=== PATIENT | female | born 1990 | race Caucasian/White ===

== ENCOUNTER 2017-08-30 16:34 | Inpatient (IN) | payer MEDICAID ==
[~2017-08-30] VITALS: Ht 172.7 cm; Wt 78.5 kg
[~2017-08-30 16:34] MED LIST: CYCL10TA14 PO; QUET100T44 PO; QUET25TA46 PO
[2017-08-30 16:41] VITALS: BP 138/86
[2017-08-30] MEDS ORDERED: diphenhydrAMINE 50 MG/ML VIAL IM ONE (17:05)
[2017-08-30] MEDS ORDERED: LORazepam 2 MG/ML VIAL IM ONE (17:05)
[2017-08-30] MEDS ORDERED: HALOPERIDOL IM 5 MG/ML VIAL IM ONE (17:05)
[2017-08-30 19:19] LABS: BASOPHILS # (AUTO) 0.2 K/uL (0.00-0.22); EOSINOPHILS # (AUTO) 0.1 K/uL (0-0.4); HEMATOCRIT 40.3 % (36-48); HEMOGLOBIN 13.6 g/dL (12.0-16.0); LYMPHOCYTES # (AUTO) 1.5 K/uL (2.5-16.5); MEAN CORPUSCULAR HEMOGLOBIN 30 pg (27-31); MEAN CORPUSCULAR HGB CONC 34 g/dL (33-37); MEAN CORPUSCULAR VOLUME 90 fL (80-94); MONOCYTES # (AUTO) 0.4 K/uL (0.8-1.0); NEUTROPHILS # (AUTO) 4.5 K/uL (1.8-7.7); PLATELET COUNT (AUTO) 336 K/uL (140-450); RED BLOOD CELL COUNT(AUTO) 4.49 MIL/uL (4.20-5.40); RED CELL DISTRIBUTION WIDTH 12.5 % (11.6-13.7); WHITE BLOOD COUNT (AUTO) 6.7 K/uL (4.8-10.8)
[2017-08-30] MEDS ORDERED: NACL 0.9% 2,000 ML IV ONE (19:30)
[2017-08-30 19:33] LABS: ANION GAP 9.3 (8-16); CARBON DIOXIDE 30.7 mmol/L (21-32); CHLORIDE 104 mmol/L (98-107); CREATININE 0.7 mg/dL (0.6-1.3); GFR ARICAN-AMERICAN 128 mL/min (>90); GLUCOSE 123 mg/dL (74-106); SODIUM SERUM 141 mmol/L (136-145); UREA NITROGEN, BLOOD 11 mg/dL (7-18)
[2017-08-30 19:42] LABS: SALICYLATE < 2.8 mg/dL (2.8-20.0)
[2017-08-30 19:46] LABS: ALBUMIN 3.4 g/dL (3.4-5.0); ASPARTATE AMINOTRANSFERASE 24 U/L (15-37); TOTAL BILIRUBIN 0.4 mg/dL (0.0-1.0)
[2017-08-30 19:47] LABS: ACETAMINOPHEN < 0.5 ug/ml (10-30)
[2017-08-30 20:07] LABS: APPEARANCE,URINE HAZY (CLEAR); BILIRUBIN,URINE 2+ (NEGATIVE); BLOOD, URINE 3+ (NEGATIVE); COLOR,URINE YELLOW (YELLOW); LEUKOCYTE ESTERASE ,URINE NEGATIVE (NEGATIVE); NITRITE, URINE NEGATIVE (NEGATIVE); UGLUCOSE NEGATIVE (NEGATIVE)
[2017-08-30 20:16] LABS: BARBITURATE, URINE NEG. ng/ml (NEG <=200); BENZODIAZEPINE, URINE NEG. ng/mL (NEG <=200); CANNABINOID, URINE NEG. ng/mL (NEG <=50); COCAINE, URINE NEG. ng/mL (NEG <=300); OPIATE, URINE NEG. ng/mL (NEG <=2000); PHENCYCLIDINE SCREEN,URINE NEG. ng/mL (NEG <=25)
[2017-08-30 20:17] LABS: WBC,URINE 0-5 (RARE) /HPF (0-5)
[2017-08-30 20:20] LABS: RBC,URINE 50-80 /HPF (0-5)
[2017-08-30] MEDS ORDERED: KCL 20 MEQ/WATER INJ PREMIX 100 ML IV ONE (20:30)
[2017-08-30] MEDS: NACL 0.9% 1,000 ML IV SCH ×2 (20:33→23:39)
[2017-08-30] MEDS ORDERED: ACETAMINOPHEN 325 MG TAB PO PRN (20:35)
[2017-08-30] MEDS ORDERED: HYDROcodone/APAP 7.5/325 MG 1 TAB PO PRN (20:35)
[2017-08-30] MEDS ORDERED: ONDANSETRON 4 MG/2 ML VIAL IVP PRN (20:35)
[2017-08-30] MEDS: DOCUSATE SODIUM 100 MG GELCAP PO SCH (21:00)
[2017-08-30 21:05] LABS: PROTHROMBIN TIME 10.2 secs (10.8-13.4)
[2017-08-30 21:09] LABS: CHOL/HDL RATIO 2.1 (1-4.5); FREE T4 (FREE THYROXINE) 1.21 ng/dL (0.76-1.46); MAGNESIUM 1.9 mg/dL (1.8-2.4); THYROID STIMULATING HORMONE 2.13 uIU/mL (0.34-3.74)
[2017-08-30] MEDS ORDERED: LORazepam 2 MG/ML VIAL IVP PRN (21:50)
[2017-08-30] MEDS ORDERED: LORazepam 2 MG/ML VIAL IVP STA (21:51)
[2017-08-30] MEDS: LORazepam 1 MG TAB PO SCH (21:55)
[2017-08-30 22:00] VITALS: BP 108/66
[2017-08-30] MEDS ORDERED: LORazepam 2 MG/ML VIAL ONE (22:01)
[2017-08-31] VITALS: BP 123/58
[2017-08-31 04:00] VITALS: BP 103/61
[2017-08-31] MEDS ORDERED: LORazepam 1 MG TAB PO SCH (05:00)
[2017-08-31] MEDS: LORazepam 1 MG TAB PO SCH ×3 (05:35→20:23)
[2017-08-31 08:00] VITALS: BP 123/61
[2017-08-31] MEDS: QUEtiapine FUMARATE 25 MG TAB PO SCH ×2 (08:54→20:28)
[2017-08-31] MEDS: MULTIVITAMIN 1 TAB PO SCH (08:54)
[2017-08-31] MEDS: DOCUSATE SODIUM 100 MG GELCAP PO SCH ×2 (08:55→20:28)
[2017-08-31] MEDS: FOLIC ACID 1 MG TAB PO SCH (08:55)
[2017-08-31] MEDS: THIAMINE 100 MG TAB PO SCH (08:55)
[2017-08-31] MEDS: NICOTINE TRANSD SYS 7 MG/24 HR PATCH TD SCH (09:42)
[2017-08-31] MEDS: NACL 0.9% 1,000 ML IV SCH ×2 (13:10→21:05)
[2017-08-31 16:00] VITALS: BP 111/76
[2017-08-31 20:00] VITALS: BP 114/74
[2017-09-01] VITALS: BP 105/67
[2017-09-01] MEDS: NACL 0.9% 1,000 ML IV SCH ×2 (02:01→10:03)
[2017-09-01] MEDS: LORazepam 1 MG TAB PO SCH ×2 (05:50→12:51)
[2017-09-01 06:46] LABS: BASOPHILS # (AUTO) 0.2 K/uL (0.00-0.22); BASOPHILS % (AUTO) 3.4 % (0.0-2.0); EOSINOPHILS # (AUTO) 0.1 K/uL (0-0.4); EOSINOPHILS % (AUTO) 1.4 % (0.0-4.0); HEMATOCRIT 39.3 % (36-48); HEMOGLOBIN 13.3 g/dL (12.0-16.0); LYMPHOCYTES # (AUTO) 1.4 K/uL (2.5-16.5); LYMPHOCYTES % (AUTO) 27.5 % (20.5-51.1); MEAN CORPUSCULAR HEMOGLOBIN 31 pg (27-31); MEAN CORPUSCULAR HGB CONC 34 g/dL (33-37); MEAN CORPUSCULAR VOLUME 91 fL (80-94); MONOCYTES # (AUTO) 0.5 K/uL (0.8-1.0); MONOCYTES % (AUTO) 9.2 % (1.7-9.3); NEUTROPHILS # (AUTO) 2.9 K/uL (1.8-7.7); NEUTROPHILS % (AUTO) 58.5 % (42.2-75.2); PLATELET COUNT (AUTO) 306 K/uL (140-450); RED BLOOD CELL COUNT(AUTO) 4.34 MIL/uL (4.20-5.40); RED CELL DISTRIBUTION WIDTH 12.5 % (11.6-13.7); WHITE BLOOD COUNT (AUTO) 5.1 K/uL (4.8-10.8)
[2017-09-01 06:59] LABS: ANION GAP 10.6 (8-16); CARBON DIOXIDE 25.9 mmol/L (21-32); CREATININE 0.6 mg/dL (0.6-1.3); POTASSIUM 3.5 mmol/L (3.5-5.1)
[2017-09-01 07:08] LABS: MAGNESIUM 1.7 mg/dL (1.8-2.4); PHOSPHORUS 3.3 mg/dL (2.5-4.9)
[2017-09-01 08:00] VITALS: BP 118/82
[2017-09-01] MEDS: NICOTINE TRANSD SYS 7 MG/24 HR PATCH TD SCH ×2 (09:00→09:57)
[2017-09-01] MEDS: MULTIVITAMIN 1 TAB PO SCH (09:55)
[2017-09-01] MEDS: DOCUSATE SODIUM 100 MG GELCAP PO SCH (09:56)
[2017-09-01] MEDS: QUEtiapine FUMARATE 25 MG TAB PO SCH (09:56)
[2017-09-01] MEDS: THIAMINE 100 MG TAB PO SCH (09:56)
[2017-09-01] MEDS: FOLIC ACID 1 MG TAB PO SCH (09:56)
== END 2017-09-01 14:45 | disposition home or self-care (01) | DRG 812 ==
LOC: MED 16:34 → MTU 20:37
PROVIDERS: ADMIT Family Medicine; ATTEND Family Medicine
DX: T43.621A Poisoning by amphetamines, accidental (unintentional), initial encounter (principal); N17.0 Acute kidney failure with tubular necrosis; G92 Toxic encephalopathy; E87.6 Hypokalemia; R31.9 Hematuria, unspecified; E83.42 Hypomagnesemia; F15.10 Other stimulant abuse, uncomplicated; E11.65 Type 2 diabetes mellitus with hyperglycemia; Z59.0 Homelessness; Z85.828 Personal history of other malignant neoplasm of skin; Z85.05 Personal history of malignant neoplasm of liver; Z79.899 Other long term (current) drug therapy; Z82.5 Family history of asthma and other chronic lower respiratory diseases; Z81.8 Family history of other mental and behavioral disorders; Y92.89 Other specified places as the place of occurrence of the external cause
CPT/HCPCS: 36415; 70450; 71010; 80048; 80053; 80305; 81001; 81025; 82150; 82550; 83036; 83690; 83735; 83880; 84100; 84439; 84443; 85025; 85610; 85730; 87081; 87086; 96361; 96365; 96372; 96375; 99285; G0480; G0482; J1200; J1630; J2060; J3480; J7030

== ENCOUNTER 2017-09-01 16:43 | Emergency (ER) | payer MEDICAID ==
[~2017-09-01] VITALS: Ht 175.3 cm; Wt 63.5 kg
[2017-09-01 16:45] VITALS: BP 139/89
[2017-09-01 18:05] LABS: APPEARANCE,URINE CLEAR (CLEAR); COLOR,URINE YELLOW (YELLOW); PH,URINE 7.5 (5.0-9.0)
[2017-09-01 18:06] LABS: BILIRUBIN,URINE NEGATIVE (NEGATIVE); BLOOD, URINE 2+ (NEGATIVE); LEUKOCYTE ESTERASE ,URINE NEGATIVE (NEGATIVE); NITRITE, URINE NEGATIVE (NEGATIVE); UGLUCOSE NEGATIVE (NEGATIVE)
[2017-09-01 18:07] LABS: RBC,URINE 0-5 (RARE) /HPF (0-5); WBC,URINE 0-5 (RARE) /HPF (0-5)
[2017-09-01 18:08] LABS: BARBITURATE, URINE NEG. ng/ml (NEG <=200); BENZODIAZEPINE, URINE NEG. ng/mL (NEG <=200); CANNABINOID, URINE NEG. ng/mL (NEG <=50); COCAINE, URINE NEG. ng/mL (NEG <=300); OPIATE, URINE NEG. ng/mL (NEG <=2000); PHENCYCLIDINE SCREEN,URINE NEG. ng/mL (NEG <=25)
[2017-09-01 19:56] VITALS: BP 133/82
== END 2017-09-01 19:56 | disposition home or self-care (01) ==
LOC: MED 16:43
DX: R42 Dizziness and giddiness (principal); M79.672 Pain in left foot; J45.909 Unspecified asthma, uncomplicated; Z79.899 Other long term (current) drug therapy; Z85.828 Personal history of other malignant neoplasm of skin
CPT/HCPCS: 80305; 81001; 81025; 99284